=== PATIENT | female | born 2000 | race Asian ===

== ENCOUNTER 2021-05-16 07:01 | Emergency (ER) | payer OTHER ==
[~2021-05-16] VITALS: Ht 160 cm; Wt 94.9 kg
[~2021-05-16 07:01] MED LIST: FLUO10CA21 PO; PROP20TA29 PO
[2021-05-16 07:03] VITALS: BP 121/65
--- NOTE | 2021-05-16 07:10 | NUR ---
pt in lobby.
--- NOTE | 2021-05-16 07:13 | NUR ---
Kirby ko in [facility] - 05/16/21 at 0724 by [facility] pt taken to 11.
[2021-05-16] MEDS ORDERED: IBUP-2213 PO (08:09)
[2021-05-16] MEDS ORDERED: CYCL-711 PO (08:09)
[2021-05-16 08:17] VITALS: BP 121/65
--- NOTE | 2021-05-16 08:17 | NUR ---
NO NURSING INTERVENTIONS PROVIDED
--- NOTE | 2021-05-16 08:18 | NUR ---
Patient discharged with v/s stable. 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 Patient alert, oriented and verbalized understanding of instructions. Ambulatory with steady gait. All questions addressed prior to discharge. ID band removed. Patient advised to follow up with PMD. Rx of FLEXERIL AND IBUPROFEN given. Patient educated on indication of medication including possible reaction and side effects. Opportunity to ask questions provided and answered.
== END 2021-05-16 08:18 | disposition home or self-care (01) ==
LOC: MED 07:01
DX: M26.623 Arthralgia of bilateral temporomandibular joint (principal); F41.9 Anxiety disorder, unspecified; F32.9 Major depressive disorder, single episode, unspecified; Z79.899 Other long term (current) drug therapy; Z88.1 Allergy status to other antibiotic agents
CPT/HCPCS: 99283

== ENCOUNTER 2021-10-18 21:55 | Emergency (ER) | payer OTHER ==
[~2021-10-18] VITALS: Ht 160 cm; Wt 90.7 kg
[~2021-10-18 21:55] MED LIST changes: +CYCL-711 PO; +IBUP-2213 PO
[2021-10-18 22:11] VITALS: BP 109/73
[2021-10-19] MEDS ORDERED: ONDA-188 SL (02:01)
[2021-10-19] MEDS ORDERED: ACETAMINOPHEN EXTRA STRENGTH 500 MG TAB PO ONE (02:05)
[2021-10-19] MEDS ORDERED: ONDANSETRON 4 MG ODT PO ONE (02:05)
--- NOTE | 2021-10-19 02:35 | NUR ---
CALLED TO TRIAGE FOR MEDICATIONS, NO ANSWER. PT LEFT
== END 2021-10-19 02:35 | disposition home or self-care (01) ==
LOC: MED 21:55
DX: S06.0X1A Concussion with loss of consciousness of 30 minutes or less, initial encounter (principal); Z88.1 Allergy status to other antibiotic agents; Z79.899 Other long term (current) drug therapy; W22.8XXA Striking against or struck by other objects, initial encounter; Y93.89 Activity, other specified; Y92.89 Other specified places as the place of occurrence of the external cause; Y99.8 Other external cause status
CPT/HCPCS: 70450; 99284